=== PATIENT | male | born 1950 | race Caucasian/White ===

== ENCOUNTER → 2025-01-23 08:00 | Outpatient (BNVA) | payer MEDICARE, SELFPAY | PROVIDERS: Visit Provider Dermatology | DX: C44.41 Basal cell carcinoma of skin of scalp and neck (principal); B35.2 Tinea manuum; B35.1 Tinea unguium; D22.0 Melanocytic nevi of lip; D48.5 Neoplasm of uncertain behavior of skin; L57.0 Actinic keratosis | CPT/HCPCS: 11102; 17000; 99204 ==